=== PATIENT | male | born 1995 | race Caucasian/White ===

== ENCOUNTER 2023-03-28 11:52 | Emergency (ER) | payer SELFPAY ==
[2023-03-28 11:58] VITALS: BP 126/84; PULSE 62; RESP 15; TEMP 36.7; O2SAT 99; BMI 18.7
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
[2023-03-28 12:59] VITALS: BP 122/90; PULSE 53; RESP 16; TEMP 36.6; O2SAT 98
== END 2023-03-28 12:55 | disposition home or self-care (01) ==
PROVIDERS: Emergency Provider Emergency Medicine; PCP Nurse Practitioner Family
DX: T22.211A Burn of second degree of right forearm, initial encounter (principal); X08.8XXA Exposure to other specified smoke, fire and flames, initial encounter
CPT/HCPCS: 99283

== ENCOUNTER 2025-04-22 10:10 | Emergency (ER) | payer MEDICAID, SELFPAY ==
[2025-04-22 10:21] VITALS: BP 109/83; PULSE 72; RESP 18; TEMP 36.9; O2SAT 96; BMI 19.1
[2025-04-22 10:30] VITALS: BP 128/88; PULSE 68; O2SAT 100
--- OUTSIDE RECORDS SUMMARY | 2025-04-22 10:30 | XMS_ITS | Data Portability ---
Author Organization [facility] Address [address] [place] [address] Assessment Encounter Date Assessment Date Assessment LastModified by Organization Details LastModified Time 01/26/2019 01/26/2019 -Medications were reviewed and any necessary updates and renewals were made, patient instructed to complete as prescribed. -The potential side effects of medications were discussed. -Counseling was done on care goals and ways to prevent future hospitalizatio ns. -Further treatment per orders listed below. Not available 01/26/2019 16:00:10 03/30/2025 03/30/2025 Patient clear for 2 year certification. Form [id number] discussed and completed by patient and myself during visit. Vision: At least 20/40 each eye with/without corrective lens. Field of vision of at least 70 in the horizontal meridian in each eye Recognizes standard traffic colors (Red, Green, Izzy) Hearing: Passed Forced whisper test @ 5ft minimum distance Discussed medication effects/side effects that can interfere with driving Call or return if any questions/conc erns arise. [email or web address] Not available 03/30/2025 16:51:56 Plan of Treatment Reminders Order Date Submit Date Provider Last Modified By Organization Details Last Modified Time Details Appointments None recorded. Lab urinalysis, dipstick 2024 025 [email or web address] [facility], [address] [place], [address], 18:25:07 Referral None recorded. Procedures None recorded. Surgeries None recorded. Imaging electroence phalogram 2018 019 [facility] (Centralized Scheduling), [address] [place] [address] , [place], [address], 0 15:22:49 Medication Orders None recorded. Patient TargetsNo targets recorded. Patient Instructions Encounter Date Encounter Id Patient Instructions Last Modified By Organization Details Last Modified Time 01/26/2019 [id number] fainting: care instructions [email or web address] Not available 01/26/2019 16:38:04 deciding about using medicines to quit smoking [email or web address] Not available 01/26/2019 18:09:42 Quitting Tobacco : Care Instructions [email or web address] Not available 01/26/2019 18:09:42 03/30/2025 [id number] vision screen: Snellen* [email or web address] Not available 04/01/2025 18:25:07 Reason for Referral None Reported. Results Created Date Observation Date Name Description Value Unit Range Abnormal Flag Note LastModifiedBy Organization Detail LastModifiedTime 03/30/2003/30/2025 urina lysis , dipst ick Leukocytes Negati ve Not Available [facility] [address] [place], [address], 03/30/2025 16:21:01 03/30/2003/30/2025 urina lysis , dipst ick Nitrite negati ve Not Available [facility] [address] [place], [address], 03/30/2025 16:21:01 03/30/2003/30/2025 urina lysis , dipst ick Urobilinogen .2 Not Available [facility] [address] [place], [address], 03/30/2025 16:21:01 03/30/2003/30/2025 urina lysis , dipst ick Protein Negati ve Not Available [facility] [address] [place], [address], 03/30/2025 16:21:01 03/30/20 25 03/30/2025 urina lysis , dipst ick pH 6.0 Not Available [address] [place], [address], 03/30/2025 16:21:01 03/30/20 25 03/30/2025 urina lysis , dipst ick Blood Negati ve Not Available [address] [place], [address], 03/30/2025 16:21:01 03/30/2003/30/2025 urina lysis , dipst ick Specific [place] 1.030 Not Available [address] [place], [address], 03/30/2025 16:21:01 03/30/20 25 03/30/2025 urina lysis , dipst ick Ketone Negati ve Not Available [address] [place], [address], 03/30/2025 16:21:01 03/30/20 25 03/30/2025 urina lysis , dipst ick Bilirubin Negati ve Not Available [address] [place], [address], 03/30/2025 16:21:01 03/30/20 25 03/30/2025 urina lysis , dipst ick Glucose Negati ve Not Available [address] [place], [address], 03/30/2025 16:21:01 03/30/20 25 03/30/2025 urina lysis , dipst ick Appearance Clear Not Available [address] [place], [address], 03/30/2025 16:21:01 03/30/20 25 03/30/2025 urina lysis , dipst ick Color Yellow Not Available [facility] [address] [place], [address], 03/30/2025 16:21:01 03/30/20 25 03/30/2025 visio n scree n: Gayla en* Rt Eye Uncorrected 20/20 Not Available [facility] [address] [place], [place] [address] [place], [address], 03/30/2025 16:21:01 03/30/20 25 03/30/2025 visio n scree n: Gayla en* Lt Eye Uncorrected 20/20 Not Available [address] [place], [address], 03/30/2025 16:21:01 01/21/20 19 01/19/2019 XR, chest , 2 view No observ ation record ed. [place] [id number], [place], [id number], 01/20/2019 07:50:47 01/21/20 19 01/19/2019 CT, head + brain , w/o contr ast No observ ation record ed. [facility] [place] [id number], [place], [id number], 01/20/2019 07:50:37 01/21/20 19 01/19/2019 germain stone am No observ ation record ed. [facility] [place] [id number], [place], [id number], 01/20/2019 16:38:09 Result Notes None recorded. Problems Name Problem SNOMED Code Status Onset Date Resolution Date Notes Provider Name and Address Organization Details Recorded Time Tobacco dependence syndrome 51928309 Active 019 RUDOLPH Calderón [facility] 9 16:04:54 Problem Notes None recorded. Procedures Surgical History Date Name Laterality Status Provider Name and Address Organization Details Recorded Time 01/27/20 19 Medication Reconcilliation completed Gabrielle Keenan 01/26/2019 16:00:10 Imaging Results None recorded. Procedure Notes None recorded. Medical Equipment None Reported. Allergies No known drug allergies Medications Name Sig Start Date Stop Date Status Note LastModified by Organization Details LastModified Time cephalexin 500 mg capsule TAKE 1 CAPSULE BY MOUTH EVERY 8 HOURS FOR 10 DAYS 03/30 completed Not Available Not Available Not Available methylpredni solone 4 mg tablets in a dose pack 01/26 completed Not Available Not Available Not Available Vitals Date Recorded Body height Body mass index (BMI) Body weight Body temperature Heart rate Oxygen saturation Oxygen saturation in Arterial blood by Pulse oximetry Respiratory rate Systolic And Diastolic Provider Name and Address Organization Details Last Updated DateTime 9 185.42 cm 17.5 kg/m2 42754.7 9 g 98.4 [degF] 80 /min 98 % 98 % 18 /min 100/66 mm[Hg] Gabrielle Pemberton [facility] 9 16:01:33 Date Recorded Body height Body mass index (BMI) Body weight Heart rate Systolic And Diastolic Provider Name and Address Organization Details Last Updated DateTime 03/30/2025 185.42 cm 19.7 kg/m2 83794.26 g 94 /min 122/84 mm[Hg] Tiffanie Martin RUD[place] [facility] 03/30/2025 16:25:25 Social History Question Answer Notes LastModified by Organizat ion Details LastModified Time Tobacco Smoking Status Never Smoker RUDOLPH Calderón [facility] 01/26/2019 16:04:07 Able To Swim? Yes Information not available 01/26/2019 Do You Have An Advance Directive? No Information not available 01/26/2019 Are You Blind Or Do You Have Difficulty Seeing? No Information not available 01/26/2019 What Is Your Level Of Caffeine Consumption? Heavy Information not available 01/26/2019 How Much Tobacco Do You Chew? 1/day Information not available 01/26/2019 Are You Deaf Or Do You Have Serious Difficulty Hearing? No Information not available 01/26/2019 What Type Of Diet Are You Following? REGULAR Information not available 01/26/2019 Which Illicit Or Recreational Drugs Have You Used? Denies Information not available 01/26/2019 What Is The Highest Grade Or Level Of School You Have Completed Or The Highest Degree You Have Received? [id number] Information not available 01/26/2019 Swimming/diving No Informati on not available 01/26/2019 Hard Of Hearing Or Deaf In One Or Both Ears? No Information not available 01/26/2019 Legally Blind In One Or Both Eyes? No Information no t available 01/26/2019 Live Alone Or With Others? With Others Information not available 01/26/2019 What Was The Date Of Your Most Recent Tobacco Screening? 03/30/2025 Information not available 03/30/2025 How Many Children Do You Have? 2 Information not available 01/26/2019 Do You Use Protection During Sex? No Information not available 01/26/2019 What Is Your Relationship Status? Domestic Partner Information not available 01/26/2019 Seat Belts Used Routinely Yes Information not available 01/26/2019 Are You Sexually Active? Yes Information not available 01/26/2019 Smoke Alarm In Home Yes Information not available 01/26/2019 Are You Passively Exposed To Smoke? No Information no t available 01/26/2019 How Much Tobacco Do You Smoke? No Information not available 01/26/2019 General Stress Level Low Information not available 01/26/2019 Do You Use Sunscreen Routinely? No Information not available 01/26/2019 Has Tobacco Cessation Counseling Been Provided? Yes [email or web address] Information not available 03/30/2025 On What Date Was Tobacco Cessation Counseling Provided? 03/30/2025 Information not available 03/30/2025 How Many Years Have You Smoked Tobacco? 8 Information not available 01/26/2019 Do You Have Difficulty Walking Or Climbing Stairs? No Information not available 01/26/2019 Sex: Male Functional Status Question Answer Note LastModified by Organizat ion Details LastModified Time What is your level of alcohol consumption? Occasional Information not available 01/26/2019 Do you or have you ever used smokeless tobacco? Current snuff user Information not available 01/26/2019 Are you currently employed? Yes Information not available 01/26/2019 Are you able to walk independently without assistance or assistive devices? YESWOREST Information not available 01/26/2019 Do you have difficulty doing errands alone? No Information not available 01/26/2019 Are you able to care for yourself independently? 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 No Information not available 01/26/2019 Do you or have you ever used e-cigarettes or vape? Never used electronic cigarettes Information not available 01/26/2019 What is your exercise level? None Information not available 01/26/2019 Mental Status Question Answer Note LastModified by Organization D etails LastModified Time Do you have difficulty concentrating, remembering or making decisions? No Information no t available 01/26/2019 Family History Relationship Description Onset Age of this Age Resolved Age Notes LastModified by Organization Details LastModified Time Mother Hypertensive disorder Not available 2018 16:02:36 Mother Type 2 diabetes mellitus Not available 2018 16:02:54 Paternal Aunt Type 2 diabetes mellitus Not available 2018 16:03:10 Paternal Aunt Malignant neoplasm of breast Not available 2018 16:03:42 Medical History No medical history recorded. Immunizations Vaccine Type Date Status Note Provider Nam e and Address Organization Details Recorded Time varicella 12/27/2000 completed Not Available [facility] 03/30/2025 16:13:18 Tdap 01/13/2006 completed Not Available [facility] 03/30/2025 16:13:18 Past Encounters Encounter ID Performer Location Encounter Start Date Encounter Closed Date Diagnosis/Indication Diagnosis SNOMED-CT Code Diagnosis ICD10 Code Diagnosis IMO Codes Diagnosis Note [id number] Shaun Tovar MD On License Of [facility] [address] [place] [address] 01/26/2019 15:43:20 01/26/2019 16:41:32 Tobacco dependence syndrome 87526229 F17.200 Syncope and collapse 309 511020 R55 Body mass index less than 20 299918939 Z68.1 [id number] Aquilino Hinton PA-C [facility] [address] [place] [address] 03/30/2025 16:07:36 03/30/2025 16:53:19 Senior Health Consultant license medical examination 987594200 Z02.4 Health Concerns Section Related Observation LastModified by Organization Detai ls LastModified Time None Recorded Concern Status LastModified by Organization Details LastModified Time None Recorded Advance Directives Directive N: Payers Insurance Date Sequence Insurance Name Policy Number Policy Bernstein Covered Member ID Bernstein Member ID Guarantor Name 03/27/2025 1 [employer] [place] (MEDICAID HMO[place] Chase Fryman [id number] Chase Fryman 03/27/2025 [place] [employer] Chase Fryman [id number] Chase Fryman 03/24/2024 1 [employer] [place] ([place]ICA[place] Chase Fryman [id number] Chase Fryman Notes Date Note Type Note Provider Name and Address Organization Details Recorded Time 01/26/2019 text/html Emergency Depart ment Follow-Up RecordReported by Patient Here for ER F/U. Had syncopal event lasting 1 min witnessed. Says had tonic clonic type activity. No post ictal state, incontinence, tongue biting. Was fine when woke up. All labs normal, EKG normal, CT head normal. Daughter has seizures. 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 Shaun Tovar MD [address], [place], [address], [place] - [facility] 01/26/2019 16:38:42 03/30/2025 text/html DOT physical, [address] Dept[address] no notable pmhx. no acute concerns. Pt denies chest pain, SOA, difficulty eating or drinking, changes in bathroom habits, syncope/presyncope, or any other concerns. Aquilino Hinton PA-C [address], [place], [address], [facility] - [facility] 03/30/2025 16:52:32
--- OUTSIDE RECORDS SUMMARY | 2025-04-22 10:30 | XMS_ITS | Continuity of Care Document ---
Author Organization RUDOLPH Delmi Keenan [facility] Address [address] [place] [address] Assessment Encounter Date Assessment Date Assessment LastModified by Organization Details LastModified Time 03/30/2025 03/30/2025 Patient clear for 2 year certification . Form [id number] discussed and completed by patient and myself during visit. Vision: At least 20/40 each eye with/without corrective lens. Field of vision of at least 70 in the horizontal meridian in each eye Recognizes standard traffic colors (Red, Green, Izzy) Hearing: Passed Forced whisper test @ 5ft minimum distance Discussed medication effects/side effects that can interfere with driving Call or return if any questions/con cerns arise. [email or web address] Not available 03/30/2025 16:51:56 Plan of Treatment Reminders Order Date Submit Date Provider Last Modified By Organization Details Last Modified Time Details Appointments None recorded. Lab urinalysis , dipstick 2024 025 [email or web address] [facility], [address] [place], [address], 18:25:07 Referral None recorded. Procedures None recorded. Surgeries None recorded. Imaging None recorded. Medication Orders None recorded. Patient TargetsNo targets recorded. Patient Instructions Encounter Date Encounter Id Patient Instructions Last Modified By Organization Details Last Modified Time 03/30/2025 [id number] vision screen: Snellen* [email or web address] Not available 04/01/2025 18:25:07 Reason for Referral None Reported. Results Created Date Observation Date Name Description Value Unit Range Abnormal Flag Note LastModifiedBy Organization Detail LastModifiedTime 03/30/20 25 03/30/2025 urina lysis , dipst ick Leukocytes Negati ve Not Available [address] [place], [address], 03/30/2025 16:21:01 03/30/20 25 03/30/2025 urina lysis , dipst ick Nitrite negati ve Not Available [address] [place], [address], 03/30/2025 16:21:01 03/30/2003/30/2025 urina lysis , dipst ick Urobilinogen .2 Not Available [address] [place], [address], 03/30/2025 16:21:01 03/30/20 25 03/30/2025 urina lysis , dipst ick Protein Negati ve Not Available [address] [place], [address], 03/30/2025 16:21:01 03/30/20 25 03/30/2025 urina lysis , dipst ick pH 6.0 Not Available [address] [place], [address], 03/30/2025 16:21:01 03/30/20 25 03/30/2025 urina lysis , dipst ick Blood Negati ve Not Available [address] [place], [address], 03/30/2025 16:21:01 03/30/20 25 03/30/2025 urina lysis , dipst ick Specific [place] 1.030 Not Available [address] [place], [address], 03/30/2025 16:21:01 03/30/20 25 03/30/2025 urina lysis , dipst ick Ketone Negati ve Not Available [address] [place], [address], 03/30/2025 16:21:01 03/30/2003/30/2025 urina lysis , dipst ick Bilirubin Negati ve Not Available [address] [place], [address], 03/30/2025 16:21:01 03/30/2003/30/2025 urina lysis , dipst ick Glucose Negati ve Not Available [address] [place], [address], 03/30/2025 16:21:01 03/30/20 25 03/30/2025 urina lysis , dipst ick Appearance Clear Not Available [address] [place], [address], 03/30/2025 16:21:01 03/30/20 25 03/30/2025 urina lysis , dipst ick Color Yellow Not Available [address] [place], [address], 03/30/2025 16:21:01 03/30/20 25 03/30/2025 visio n scree n: Gayla en* Rt Eye Uncorrected Not Available [place] [address] [place], [address], 03/30/2025 16:21:01 03/30/20 25 03/30/2025 visio n scree n: Gayla en* Lt Eye Uncorrected Not Available [facility] [address] [place], [address], 03/30/2025 16:21:01 Result Notes None recorded. Problems Name Problem SNOMED Code Status Onset Date Resolution Date Notes Provider Name and Address Organization Details Recorded Time Tobacco dependence syndrome 80760314 Active 019 [facility] Calder[facility] 9 16:04:54 Problem Notes None recorded. Procedures Surgical History Date Name Laterality Status Provider Name and Address Organization Details Recorded Time 01/27/20 19 Medication Reconcilliation completed Gabrielle Pemberton [facility] 01/26/2019 16:00:10 Imaging Results None recorded. Procedure [...] Updated DateTime 03/30/2025 185.42 cm 19.7 kg/m2 59747.26 g 94 /min 122/84 mm[Hg] Tiffanie GALDAMEZ [facility] 03/30/2025 16:25:25 Social History Question Answer Notes LastModified by Organizat ion Details LastModified Time Tobacco Smoking Status Never Smoker [facility]PH [facility] 01/26/2019 16:04:07 Able To Swim? Yes [...] Or The Highest Degree You Have Received? [id number] Information not available 01/26/2019 Swimming/diving No Informati [...] Has Tobacco Cessation Counseling Been Provided? Yes [email or web address] Information not available 03/30/2025 On What Date Was Tobacco Cessation Counseling Provided? 03/30/2025 [email or web address] Information not available 03/30/2025 How Many Years [...] difficulty concentrating, remembering or making decisions? No [email or web address] Information no t available 01/26/2019 Family History [...] ICD10 Code Diagnosis IMO Codes Diagnosis Note [id number] Aquilino Hinton PA-C [facility] [address] [place] [place] [address] 03/30/2025 16:07:36 03/30/2025 16:53:19 Heeler license medical examination [id number] Z02.4 Health Concerns Section Related Observation LastModified by Organization Detai ls LastModified Time None Recorded Concern Status LastModified by Organization Details LastModified Time None Recorded Payers Encounter Date Sequence Insurance Name Policy Number Policy Bernstein Covered Member ID Bernstein Member ID Guarantor Name 03/30/2025 1 [facility] (MEDICAID HMO) Chasemichael Hooker [id number] Chase Hooker Notes Date Note Type Note Provider Name and Address Organization Details Recorded Time 03/30/2025 text/html DOT physical, [employer]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 no notable pmhx. no acute concerns. Pt denies chest pain, SOA, difficulty eating or drinking, changes in bathroom habits, syncope/presyncop e, or any other concerns. Aquilino Hinton PA-C [address], [place], [address], [place] - [facility] 03/30/2025 16:52:32
--- NOTE | 2025-04-22 10:40 | HMH.EDGENADL ---
Discharge Plan Disposition Patient Disposition: Home, Self-Care Prescriptions Prescriptions: New methylprednisolone [Medrol (Javier)] 4 mg tablets,dose pack See Rx Instructions .ROUTE .COMPLEX Qty: 21 0RF Rx Instructions: for 6 days methocarbamol 500 mg tablet 500 mg PO Q8H PRN (Reason: muscle spasm) Qty: 30 0RF ibuprofen 800 mg tablet 800 mg PO Q8H PRN (Reason: pain) Qty: 30 0RF lidocaine 5 % adhesive patch,medicated 1 patch topical DAILY Qty: 15 0RF Rx Instructions: leave on most painful area for up to 12 hrs No Action bacitracin 500 unit/gram ointment 1 applic topical Q8H Qty: 30 0RF Referrals Follow up/Referrals: Yuan Hooker APRN [Primary Care Provider, Medical] - See instructions Activity Restrictions/Add. Instructions Additional Instructions/Restrictions: You likely have a pinched nerve from herniated disc in your back. I prescribed you steroids, ibuprofen as well as lidocaine patches and a muscle relaxer. You could also take Tylenol every 6 hours as needed. I do encourage you to follow-up with your primary care doctor this upcoming week for reassessment. Continue to stretch and move as much as you can to help prevent stiffness. The muscle relaxer can make you sleepy, so avoid driving if it does make you sleepy. If you develop any new or worsening symptoms, such as numbness and tingling in your genital area, difficulty urinating, urinating on yourself, worsening weakness in 1 or both legs, or if you become concerned for your health for any reason, return to the emergency department for evaluation Clinical Impressions Clinical Impression: Back pain Stand Alone Forms Stand Alone Forms: Work/School Release Instructions Patient Instructions: DI for Low Back Pain Print Language Print Language: Upper Sorbian Discharge ED Provider: Ze Jacobs General Adult HPI General Chief complaint: Back Pain/Injury Stated complaint: Back pain and weakness in his legs Time Seen by Provider: 04/22/25 10:28 Mode of Arrival: Wheelchair Source of Information: Patient and Spouse Description of Symptoms (Recalled from ER Triage Doc. by RN): pt reports lower back pain that started after dragging a deer. now his legs are mirna weak. denies incontinence History of Present Illness HPI narrative: Chase Hooker is a 29M with no significant past medical history who presents to the emergency department for complaints of lower back pain. Patient states that yesterday morning, he was pulling a deer in a field and twisted to the left and felt a pain in his lower back. He states that he has had episodes where his back will lock up since then and caused him to go down to his knees. He states that he has still been able to walk, however the pain episodes keep recurring. He denies any numbness or weakness in his legs. He denies any direct trauma to his back. He denies any urinary incontinence or difficulty urinating. He states he is having normal bowel movements. He denies any numbness or tingling in his genital or buttock. He denies any IV drug use or fevers. Related Data Previous Rx's ?Medication ?Instructions ?Recorded bacitracin 500 unit/gram topical 1 applic topical Q8H #30 grams 03/28/23 ointment ibuprofen 800 mg tablet 800 mg PO Q8H PRN pain #30 tabs 04/22/25 lidocaine 5 % topical patch 1 patch topical DAILY #15 ea 04/22/25 methocarbamol 500 mg tablet 500 mg PO Q8H PRN muscle spasm #30 04/22/25 tabs methylprednisolone 4 mg tablets in See Rx Instructions PO .COMPLEX 04/22/25 a dose pack (Medrol (Javier)) #21 tabs Allergies Allergy/AdvReac Type Severity Reaction Status Date / Time No Known Allergies Allergy Verified 07/17/18 16:32 [facility] Disclaimer: The information contained in this section may have been updated after the patient was seen, as this information can be updated by other users. Social History Smoking Status: Never smoker alcohol intake: never current occupational status: employed Travel in the last 8 weeks?: None housing: apartment Have you lived/traveled outside [place] in past 30 days?: No Contact w/someone who lives/traveled outside US past 30 days?: No Exposure to someone with infectious disease in past 14 days?: No Do you have a fever (greater than 100.4 F or 38 C)?: No Have you tested positive for COVID-19?: No Exposed to someone with COVID-19 in past 14 days?: No Do you have a sore throat?: No Do you have a cough?: No Do you have any weakness?: No Do you have any diarrhea?: No Are you experiencing any unusual bleeding?: No Do you have any muscle aches/pain?: No Do you have any abdominal pain?: No Are you experiencing loss of taste or smell?: No Other Medical History Have you received the Flu Vaccine for this season: No Have you received the Pneumonia Vaccine: No ROS Obtained: Yes Systems reviewed as appropriate & no additional complaints except as documented Physical Exam General General appearance: alert and in no apparent distress Head Head exam: atraumatic Eye Eye exam: Present normal appearance ENT ENT exam: Present normal external ear exam Neck Neck exam: Present full ROM Chest Chest inspection: Present symmetric chest wall rise Respiratory Respiratory exam: Present normal lung sounds bilaterally; Absent respiratory distress, wheezes or stridor Cardiovascular Cardiovascular exam: Present regular rate and normal rhythm Abdominal Exam Abdominal exam: Present soft; Absent tenderness or guarding exam: Present deferred Extremities Exam Extremities exam: Present normal inspection Back Exam Back exam: Present normal inspection, tenderness (Bilateral lumbar paraspinal muscle tenderness), straight leg raise (R) and straight leg raise (L) Neurological Exam Neurological exam: Present alert and oriented X3; Absent motor sensory deficit (5 out of 5 strength in the bilateral lower extremities with flexion at the hip, knees and ankle plantarflexion and dorsiflexion. 5 out of 5 strength with extension at the knee. Sensation 5 out of 5 to bilateral lower extremities.) Psychiatric Psychiatric exam: Present normal affect Skin Skin exam: Present warm and dry Medical Decision Making Medical Records Screening: Per USPSTF and CDC recommendations, given the prevalence of disease in our region, it is our hospital?s policy to screen for HIV and viral Hepatitis for all patients aged 18 and over and those with ongoing risk factors. Bernard Inquiry Pt receiving controlled substance: No Vital Signs: 04/22/25 10:21 04/22/25 10:30 04/22/25 10:57 Temperature 98.4 F 98.0 F Temperature Source Oral Oral Pulse Rate 68 60 Pulse Rate [Right] 72 Respiratory Rate 18 16 Blood Pressure 128/88 127/74 Blood Pressure [Right Arm] 109/83 L Blood Pressure Mean [Right Arm] 91 Blood Pressure Source Automatic Cuff Blood Pressure Position Sitting 02 Sat by Pulse Oximetry 96 100 Oxygen Delivery Method Room Air Room Air Room Air Orders (Tests/Meds): ED MEDICATIONS Discontinued Medications Generic Name Dose Route Start Last Admin Trade Name Freq PRN Reason Stop Dose Admin Acetaminophen 1,000 mg 04/22/25 10:36 04/22/25 10:49 Acetaminophen 500mg Tab PO 04/22/25 10:37 1,000 mg ONCE ONE Administration Ibuprofen 800 mg 04/22/25 10:36 04/22/25 10:49 Ibuprofen 800 Mg Tablet PO 04/22/25 10:37 800 mg ONCE ONE Administration Lidocaine 1 each 04/22/25 10:36 04/22/25 10:50 Lidocaine 5% Transdermal Patch TD 04/22/25 10:37 1 each ONCE ONE Administration ORDERS Category Date Time Status HIV Combo Stat Lab 04/22/25 10:24 Ordered Hepatitis C Ab Qual. W/ RFX Stat Lab 04/22/25 10:24 Ordered Medical Decision Narrative: Chase Hooker is a 29M with no significant past medical history who presents to the emergency department for complaints of lower back pain. Patient states that yesterday morning, he was pulling a deer in a field and twisted to the left and felt a pain in his lower back. He states that he has had episodes where his back will lock up since then and caused him to go down to his knees. He states that he has still been able to walk, however the pain episodes keep recurring. He denies any numbness or weakness in his legs. He denies any direct trauma to his back. He denies any urinary incontinence or difficulty urinating. He states he is having normal bowel movements. He denies any numbness or tingling in his genital or buttock. He denies any IV drug use or fevers. On arrival, patient is hemodynamically stable, afebrile, breathing comfortably on room air no acute distress. Physical exam, stated above, reveals nontoxic-appearing male resting comfortably in the stretcher. He has 5 out of 5 strength in bilateral lower extremities at the hip, knees and ankles with flexion and extension. Sensation 5 out of 5 and equal bilaterally. He has a positive straight leg raise bilaterally and has worsening back pain more so with left-sided straight leg raise than the right. He has bilateral lumbar paraspinal muscle tenderness but no significant midline tenderness or deformity. Given mechanism of patient's injury, I suspect patient has a herniated disc but no red flag symptoms to suggest cauda equina. He likely has radiculopathy secondary to herniated disc. He has no risk factors to suggest an epidural abscess. CT imaging of the L-spine was considered, however I have low concern for fracture and clinically patient has symptoms consistent with radiculopathy and disc herniation. Will recommend course of steroids, muscle relaxers, NSAIDs as well as Tylenol. Will provide dose of Tylenol and ibuprofen here in the emergency department as well as a lidocaine patch. Prescription for Medrol Dosepak, lidocaine patch, ibuprofen 800 mg were sent to the pharmacy. He was struck to follow-up with his primary care physicians if symptoms do not improve. Return precautions were given. All questions were answered. He demonstrated understanding and was agreement this plan. He was then discharged from the emergency department in stable condition. Critical Care Critical Care Time Critical Care Time: No
[2025-04-22] MEDS: ACETAMINOPHEN 500MG TAB 1000 MG PO (10:49)
[2025-04-22] MEDS: IBUPROFEN 800 MG TABLET PO (10:49)
[2025-04-22] MEDS: LIDOCAINE 5% TRANSDERMAL PATCH 1 EACH TD (10:50)
[2025-04-22 10:57] VITALS: BP 127/74; PULSE 60; RESP 16; TEMP 36.7; O2SAT 100
== END 2025-04-22 10:58 | disposition home or self-care (01) ==
PROVIDERS: Emergency Provider Student in an Organized Health Care Education/Training Program; PCP Nurse Practitioner Family
DX: M54.9 Dorsalgia, unspecified (principal)
CPT/HCPCS: 99283